=== PATIENT | male | born 1970 | race African-American/Black ===

== ENCOUNTER 2020-02-13 01:37 | Emergency (ER) | payer BC ==
[~2020-02-13] VITALS: Ht 188 cm; Wt 131.5 kg
[~2020-02-13 01:37] MED LIST: SIMV5TAB59 PO
[2020-02-13] MEDS ORDERED: BICT1TAB PO (01:47)
[2020-02-13] MEDS ORDERED: PRAV40TA3 PO (01:47)
--- NOTE | 2020-02-13 01:50 | NUR ---
at bedside for MSE
--- NOTE | 2020-02-13 02:06 | NUR ---
urine collected at this time and sent to lab
[2020-02-13] MEDS ORDERED: HYDROCHLOROTHIAZIDE 25 MG TABLET PO ONE (02:15)
[2020-02-13 02:19] LABS: BASOPHILS % (AUTO) 0.3 % (0.0-2.0); EOSINOPHILS # (AUTO) 0.2 K/uL (0.0-0.7); EOSINOPHILS % (AUTO) 3.7 % (0.0-7.0); HEMOGLOBIN 13.7 g/dL (12.5-16.3); LYMPHOCYTES % (AUTO) 67.6 % (20.5-51.5); MEAN CORPUSCULAR HEMOGLOBIN 31.4 uug (23.8-33.4); MEAN CORPUSCULAR HGB CONC 34 g/dL (32.5-36.3); MONOCYTES # (AUTO) 0.4 K/uL (2.0-10.0); MONOCYTES % (AUTO) 6.5 % (0.0-11.0); NEUTROPHILS # (AUTO) 1.3 K/uL (1.8-8.9); NEUTROPHILS % (AUTO) 21.9 % (38.5-71.5); PLATELET COUNT (AUTO) 269 K/uL (152-348); RED BLOOD CELL COUNT(AUTO) 4.34 MIL/uL (4.06-5.63); WHITE BLOOD COUNT (AUTO) 5.9 K/uL (3.6-10.2)
[2020-02-13 02:20] LABS: *BILIRUBIN,URIN NEGATIVE (NEGATIVE); *BLOOD, URINE NEGATIVE (NEGATIVE); *CLARITY,URINE CLEAR (CLEAR); *COLOR,URINE LIGHT YELLOW (YELLOW); *KETONES,URINE NEGATIVE (NEGATIVE); *UROBILINOGEN,URINE 0.2 E.U./dl (NORMAL); LEUKOCYTE ESTERASE ,URINE NEGATIVE (NEGATIVE); NITRITE, URINE NEGATIVE (NEGATIVE); PH,URINE 6.5 (5.0-8.0); UGLUCOSE NEGATIVE (NEGATIVE)
[2020-02-13 02:24] LABS: CREATININE 1.3 mg/dL (0.6-1.3); POTASSIUM 4.1 mmol/L (3.5-5.1)
[2020-02-13 02:30] LABS: BILIRUBIN,TOTAL 0.6 mg/dL (0.2-1.0); TOTAL PROTEIN, SERUM 8.3 g/dL (6.4-8.2)
--- NOTE | 2020-02-13 02:37 | NUR ---
Patient discharged to home in stable condition. Noted ambulating with steady gait, no signs of distress noted, no ocmplaints of pain. labs and copy of EKG sent with patient to follow up with primary care physcian. Written and verbal after care instructions given. Patient verbalizes understanding of instructions. Stressed follow up or return to ER for worsening s/s.
[2020-02-13 02:39] VITALS: BP 170/118
== END 2020-02-13 02:39 | disposition home or self-care (01) ==
LOC: ER 01:39
DX: R03.0 Elevated blood-pressure reading, without diagnosis of hypertension (principal); R20.0 Anesthesia of skin; E78.00 Pure hypercholesterolemia, unspecified; Z79.899 Other long term (current) drug therapy
CPT/HCPCS: 36415; 85025; 93005; A4663

== ENCOUNTER 2020-02-19 03:12 | Emergency (ER) | payer BC ==
[~2020-02-19] VITALS: Ht 188 cm; Wt 127.0 kg
[~2020-02-19 03:12] MED LIST changes: +BICT1TAB PO; +PRAV40TA3 PO; -SIMV5TAB59 PO
[2020-02-19] MEDS ORDERED: AMLO5TAB9 PO (03:19)
--- NOTE | 2020-02-19 03:30 | NUR ---
Dr Law at bedside for MSE.
--- NOTE | 2020-02-19 03:49 | NUR ---
Patient discharged to home in stable condition. Written and verbal after care instructions given. 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 Patient verbalizes understanding of instructions. Stressed follow up or return to ER for worsening s/s.Ambulated out of ER in steady gait.
[2020-02-19 03:50] VITALS: BP 140/95
== END 2020-02-19 03:51 | disposition home or self-care (01) ==
LOC: ER 03:14
DX: I10 Essential (primary) hypertension (principal); Z79.899 Other long term (current) drug therapy
CPT/HCPCS: A4663